=== PATIENT | female | born 1960 | race Caucasian/White ===

== ENCOUNTER 2016-06-12 06:21 | Day surgery (SDC) | payer BC ==
[~2016-06-12] VITALS: Ht 160 cm; Wt 88.6 kg
[2016-06-12 07:18] LABS: HEMATOCRIT 49.8 % (36.0-48.0); HEMOGLOBIN 17.2 g/dL (12-16); MCH 32.7 pg (26.0-34.0); MCHC 34.5 g/dL (31.0-37.0); MCV 94.7 fL (80.0-100.0); MEAN PLATELET VOLUME 10.7 fL (7.4-10.4); RBC 5.26 10x6/uL (4.00-5.40); RDW 13.4 % (11.5-14.5); WBC 10.7 10x3/uL (4.8-10.8)
[2016-06-12] MEDS ORDERED: CYMBALTA60 MG PO (07:25)
[2016-06-12] MEDS ORDERED: ZESTRIL40 MG PO (07:26)
[2016-06-12] MEDS ORDERED: HYDROCHLOROTHIA25 MG PO (07:26)
[2016-06-12] MEDS ORDERED: SECTRAL400 MG PO (07:26)
[2016-06-12] MEDS ORDERED: HYDROCODONE-APA1 TAB PO (07:27)
[2016-06-12] MEDS ORDERED: VITAMIN D5000 UNIT PO (07:27)
[2016-06-12] MEDS ORDERED: DURAGESIC1 PATCH .1 TRANSDERM (07:27)
[2016-06-12] MEDS ORDERED: NEURONTIN 300300 MG PO (07:28)
[2016-06-12 07:35] VITALS: BP 118/70; Ht 160 cm; Wt 88.6 kg
--- NOTE | 2016-06-12 12:13 | NUR ---
1015 IV DC WITH CATHER TIP INTACT
--- NOTE | 2016-06-13 18:58 | OP ---
PATIENT NAME: LUIS RODRIGUEZ MEDICAL RECORD: [id number] :62 LOCATION:[facility] ADMISSION DATE: SURGEON: DEVANTE THOMAS MD DATE OF OPERATION: 06/12/2016 PREOPERATIVE DIAGNOSIS: Screening for colon malignancy. POSTOPERATIVE DIAGNOSIS: Screening for colon malignancy. OPERATIVE FINDINGS: One less than 1 cm benign appearing pedunculated polyp. OPERATION PERFORMED: Colonoscopy with one biopsy and destruction of colonic polyp at 20 cm in the rectosigmoid colon. SURGEON: Devante Thomas MD ANESTHESIA: TIVA per [employer]. REFERRING PHYSICIAN: Dr. Miranda of [place]. PREOPERATIVE NOTE: Ms. Luis Rodriguez is a 55-year-old white female patient, who has not prior to this had screening colonoscopy. She is considered to be generally a low risk patient with no history of colon polyps or family history of colorectal cancer. She has had a standard MiraLax bowel prep and is brought to the GI lab at this time for colonoscopy under TIVA per [employer]. She has not had a colonoscopy prior to this. Under TIVA in lateral decubitus position, the anus and rectum were examined. There was no evidence of perianal sepsis or inflammation. No hemorrhoidal thrombosis. There were no palpable masses. There was normal anal sphincter tone and the rectum was empty. The Olympus colonoscope was then inserted and advanced to the cecum. This was made difficult by a fairly large amount of residual liquid stool, which required extensive suction and irrigation, although a satisfactory result with good inspection of the colonic mucosa was eventually obtained. There was difficulty in reaching the cecum due to tortuosity and length of colon. This may be related to the patient's chronic medication with fentanyl for chronic back pain and resultant constipation. The scope was slowly withdrawn, and the only abnormality seen were a few scattered right-sided and left-sided diverticular orifice without evidence of bleeding or inflammation and at 20 cm from the anal verge in the rectosigmoid colon, there was a single benign appearing pedunculated polyp less than a centimeter, probably less than a half a centimeter in diameter, which was biopsied and destroyed with electrocautery. The scope was retroflexed in the rectum and no pathology identified there, the scope was withdrawn and the patient in stable condition returned to the outpatient department. I plan to have the patient call my office next week on for results of today's pathology and unless there is some unexpected finding my recommendation would be that she have a repeat colonoscopy done for followup in 3 years. She is to resume or continue all of her same medications except that I would like her to continue to abstain from aspirin and NSAID medications for additional 7 days. She is to call me either at the office or my cell phone and she is given that number should she have any onset of some significant abdominal pain or rectal bleeding within the next 2 weeks certainly. I will be actually having her back to see me in the office at this time on a p.r.n. basis. OPERATIVE REPORT [id number] EMETERIOLUIS TRANSINT:[id number] Voice Confirmation ID: [id number] DOCUMENT ID: [id number] DEVANTE THOMAS MD at 1858 CC: MOODY MIRANDA MD [id number] DICTATION DATE: 06/12/16931 DIGITAL MEDIA PLANNER: 06/12/16 1720 [facility] 06/12/16 [facility] [address] [place] [address]
== END 2016-06-12 10:45 | disposition home or self-care (01) ==
LOC: D.OPS 06:21
PROVIDERS: Anesthesiology
DX: Z12.11 Encounter for screening for malignant neoplasm of colon (principal); D12.7 Benign neoplasm of rectosigmoid junction; K57.30 Diverticulosis of large intestine without perforation or abscess without bleeding; I10 Essential (primary) hypertension; E11.9 Type 2 diabetes mellitus without complications; I25.10 Atherosclerotic heart disease of native coronary artery without angina pectoris; Z95.5 Presence of coronary angioplasty implant and graft; Z98.84 Bariatric surgery status; Z79.891 Long term (current) use of opiate analgesic; Z79.899 Other long term (current) drug therapy; F17.200 Nicotine dependence, unspecified, uncomplicated